=== PATIENT | female | born 1955 | race Caucasian/White ===

== ENCOUNTER 2016-08-29 21:09 | Emergency (ER) | payer OTHER | END 2016-08-29 23:41 | disposition home or self-care (01) | LOC: ER 21:09 | DX: H65.191 Other acute nonsuppurative otitis media, right ear (principal); J02.9 Acute pharyngitis, unspecified; E11.9 Type 2 diabetes mellitus without complications; I10 Essential (primary) hypertension; G89.4 Chronic pain syndrome; Z79.899 Other long term (current) drug therapy; Z79.84 Long term (current) use of oral hypoglycemic drugs; Z88.1 Allergy status to other antibiotic agents; Z88.5 Allergy status to narcotic agent | CPT/HCPCS: 99282 ==

== ENCOUNTER 2016-09-18 17:14 | Emergency (ER) | payer OTHER ==
[2016-09-18 19:33] LABS: BASO % 0.2 % (0.1-1.2); EOS # 0.1 10_X3_uL (0.0-0.4); EOS % 1.6 % (0.7-5.8); GRAN # 6.7 10_X3_uL (1.6-6.1); GRAN % 78.2 % (34.0-71.1); HEMATOCRIT 34.6 % (34-45); HEMOGLOBIN 11.4 g/dL (11.2-15.7); LYMPH # 0.9 10_X3_uL (1.2-3.7); LYMPH % 10.7 % (19.3-51.7); MEAN CORPUSCULAR HEMOGLOBIN 25.7 pg (27.0-33.0); MEAN CORPUSCULAR HGB CONC 32.9 g/dL (32.0-36.0); MEAN CORPUSCULAR VOLUME 77.9 fL (79-95); MEAN PLATELET VOLUME 10.2 fl (7.5-11.5); MONO # 0.8 10_X3_uL (0.2-0.9); MONO % 9.3 % (4.7-12.5); PLATELET COUNT 256 x10_3/uL (182-369); RED BLOOD COUNT 4.44 x10_6/uL (3.9-5.2); RED CELL DISTRIBUTION WIDTH 15.4 % (11.7-14.4); WHITE BLOOD COUNT 8.5 x10_3/uL (4.0-10.0)
[2016-09-18 19:47] LABS: BLOOD UREA NITROGEN 19 mg/dL (7-18); CALCIUM 8.9 mg/dL (8.7-10.7); CARBON DIOXIDE 25 mmol/L (21-32); CREATININE 0.7 mg/dL (0.6-1.3); GLUCOSE,RANDOM 137 mg/dL (70-99); POTASSIUM 3.4 mmol/L (3.5-5.1); SODIUM 138 mmol/L (136-145)
== END 2016-09-18 21:00 | disposition home or self-care (01) ==
LOC: ER 17:14
PROVIDERS: Internal Medicine
DX: L03.90 Cellulitis, unspecified (principal); I10 Essential (primary) hypertension; J44.9 Chronic obstructive pulmonary disease, unspecified; F32.9 Major depressive disorder, single episode, unspecified; M54.9 Dorsalgia, unspecified; D86.9 Sarcoidosis, unspecified; Z88.1 Allergy status to other antibiotic agents; Z88.5 Allergy status to narcotic agent; Z79.899 Other long term (current) drug therapy; Z79.84 Long term (current) use of oral hypoglycemic drugs
CPT/HCPCS: 36415; 80048; 83605; 85025; 87040; 96360; 96361; 96372; 99070; 99283-25

== ENCOUNTER 2016-09-19 08:52 | Emergency (ER) | payer OTHER ==
[2016-09-19 10:37] LABS: BASO % 0.3 % (0.1-1.2); EOS # 0.2 10_X3_uL (0.0-0.4); EOS % 2.6 % (0.7-5.8); GRAN # 5.3 10_X3_uL (1.6-6.1); GRAN % 75.4 % (34.0-71.1); LYMPH # 0.8 10_X3_uL (1.2-3.7); MEAN CORPUSCULAR HEMOGLOBIN 25.6 pg (27.0-33.0); MEAN CORPUSCULAR HGB CONC 32.4 g/dL (32.0-36.0); MEAN CORPUSCULAR VOLUME 79.1 fL (79-95); MEAN PLATELET VOLUME 10.3 fl (7.5-11.5); MONO # 0.8 10_X3_uL (0.2-0.9); MONO % 10.7 % (4.7-12.5); PLATELET COUNT 222 x10_3/uL (182-369); RED CELL DISTRIBUTION WIDTH 15.5 % (11.7-14.4)
== END 2016-09-19 11:45 | disposition home or self-care (01) ==
LOC: ER 08:52
PROVIDERS: Internal Medicine
PROC: 0H9LXZZ Drainage of Left Lower Leg Skin, External Approach (ICD-10-PCS; principal; 2016-09-19)
DX: L02.415 Cutaneous abscess of right lower limb (principal); L02.416 Cutaneous abscess of left lower limb; E11.9 Type 2 diabetes mellitus without complications; I10 Essential (primary) hypertension; Z90.49 Acquired absence of other specified parts of digestive tract; Z90.710 Acquired absence of both cervix and uterus; Z98.890 Other specified postprocedural states; Z88.1 Allergy status to other antibiotic agents; Z88.5 Allergy status to narcotic agent
CPT/HCPCS: 36415; 85025; 87070; 87186; 99070; 99283